=== PATIENT | female | born 1965 | race Caucasian/White ===

== ENCOUNTER 2020-01-13 16:14 | Emergency (ER) | payer SELFPAY ==
--- NOTE | 2020-01-13 17:26 | EDM.PDOCBH ---
ED HPI GENERAL MEDICAL PROBLEM - General Chief Complaint: Behavioral/Psych Stated Complaint: [facility] Time Seen by Provider: 01/13/20 17:07 Source of Information: Reports: Patient History Limitations: Reports: No Limitations ( ) - History of Present Illness INITIAL COMMENTS - FREE TEXT/NARRATIVE: Patient is a 54-year-old female who presents with complaints of a "panic attack "which caused her to call the ambulance. Patient states that she was lying in bed, her heart started racing, she was hyperventilating, and her hands and feet were numb and tingling. She states she has had this happen before, however she can usually calm herself down but today she cannot. Patient has a history of anxiety with panic attacks however, she is not on any anxiety medications nor has she ever been. She has been working night shifts for the past few days and has only slept for about 4 hours total over the last 3 days. She also has some increased stress at home. 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 At the time of the interview, patient's symptoms had resolved and she states that she is feeling much better. She denies any chest pain, shortness of breath, or palpitations at the time of the exam. She does not have a primary care provider. - Related Data Allergies Allergy/AdvReac Type Severity Reaction Status Date / Time No Known Allergies Allergy Verified 01/13/20 16:20 Home Meds: Home Meds . [No Known Home Meds] 01/13/20 [History] Past Medical History HEENT History: Reports: Other (See Below) Other HEENT History: cold sore to nose Social & Family History - Tobacco Use Smoking Status *Q: Never Smoker - Caffeine Use Caffeine Use: Reports: Tea - Recreational Drug Use Recreational Drug Use: No ED ROS GENERAL - Review of Systems Review Of Systems: Comprehensive ROS is negative, except as noted in HPI. ED EXAM, BEHAVIORAL HEALTH - Physical Exam Exam: See Below Exam Limited By: No Limitations General Appearance: Alert, WD/WN, No Apparent Distress Respiratory/Chest: No Respiratory Distress, Lungs Clear, Normal Breath Sounds, No Accessory Muscle Use, Chest Non-Tender Cardiovascular: Normal Peripheral Pulses, Regular Rate, Rhythm, No Edema, No Gallop, No JVD, No Murmur, No Rub GI/Abdominal: Normal Bowel Sounds, Soft, Non-Tender, No Organomegaly, No Distention, No Abnormal Bruit, No Mass Neurological: Alert, Normal Mood/Affect, CN II-XII Intact, Normal Cognition, Normal Gait, Normal Reflexes, No Motor/Sensory Deficits, Oriented x 3 Psychiatric: Alert, Normal Affect, Normal Cognition, Normal Mood, Oriented EKG INTERPRETATION EKG Date: 01/13/20 Time: 17:35 Rhythm: NSR Rate (Beats/Min): 75 [place]: Normal P-Wave: Present QRS: Normal ST-T: Normal QT: Normal EKG Interpretation Comments: RSR wave V1 V2, normal variant Early R wave progression, consider septal hypertrophy Consider left atrial hypertrophy EKG interpreted by Dr. Becca SALAS COURSE, BEHAVIORAL HEALTH COMP - Course Vital Signs: Last Vital Signs Temp 99.7 F 01/13/20 16:15 Pulse 88 01/13/20 16:15 Resp 20 01/13/20 16:15 BP 143/79 H 01/13/20 16:15 Pulse Ox 100 01/13/20 16:15 Orders, Labs, Meds: Active Orders 24 hr Category Date Time Status EKG Documentation Completion [RC] STAT Care 01/13/20 17:22 Active Laboratory Tests 01/13/20 01/13/20 01/13/20 Range/Units 17:34 17:34 18:48 WBC 6.51 (3.98-10.04) K/mm3 RBC 4.97 (3.98-5.22) M/mm3 Hgb 14.8 (11.2-15.7) gm/dl Hct 43.9 (34.1-44.9) % MCV 88.3 (79.4-94.8) fl MCH 29.8 (25.6-32.2) pg MCHC 33.7 (32.2-35.5) g/dl RDW Std Deviation 38.3 (36.4-46.3) fL Plt Count 310 (182-369) K/mm3 MPV 9.0 L (9.4-12.3) fl Neut % (Auto) 72.4 H (34.0-71.1) % Lymph % (Auto) 22.3 (19.3-51.7) % [place] % (Auto) 4.5 L (4.7-12.5) % Eos % (Auto) 0.3 L (0.7-5.8) Baso % (Auto) 0.3 (0.1-1.2) % Neut # (Auto) 4.72 (1.56-6.13) K/mm3 Lymph # (Auto) 1.45 (1.18-3.74) K/mm3 [place] # (Auto) 0.29 (0.24-0.36) K/mm3 Eos # (Auto) 0.02 L (0.04-0.36) K/mm3 Baso # (Auto) 0.02 (0.01-0.08) K/mm3 Sodium 143 (136-145) mEq/L Potassium 3.6 (3.5-5.1) mEq/L Chloride 105 (98-107) mEq/L Carbon Dioxide 29 (21-32) mEq/L Anion Gap 12.6 (5-15) BUN 6 L (7-18) mg/dL Creatinine 0.8 (0.55-1.02) mg/dL Est Cr Clr Drug Dosing 64.95 mL/min Estimated GFR (MDRD) > 60 (>60) mL/min BUN/Creatinine Ratio 7.5 L (14-18) Glucose 111 H (74-106) mg/dL Calcium 9.9 (8.5-10.1) mg/dL Total Bilirubin 0.7 (0.2-1.0) mg/dL AST 21 (15-37) U/L ALT 29 (14-59) U/L Alkaline Phosphatase 98 (46-116) U/L Total Protein 8.0 (6.4-8.2) g/dl Albumin 4.5 (3.4-5.0) g/dl Globulin 3.5 gm/dL Albumin/Globulin Ratio 1.3 (1-2) TSH 3rd Generation 0.936 (0.358-3.74) uIU/mL Urine Color Light yellow (Yellow) Urine Appearance Clear (Clear) Urine pH 7.0 (5.0-8.0) Ur Specific [place] 1.020 (1.005-1.030) Urine Protein Negative (Negative) Urine Glucose (UA) Negative (Negative) Urine Ketones 1+ H (Negative) Urine Occult Blood Negative (Negative) Urine Nitrite Negative (Negative) Urine Bilirubin Negative (Negative) Urine Urobilinogen 0.2 (0.2-1.0) Ur Leukocyte Esterase Negative (Negative) Urine RBC Not seen (0-5) /hpf Urine WBC 0-5 (0-5) /hpf Ur Squamous Epith Cells 0-5 (0-5) /hpf Urine Bacteria Not seen (FEW) /hpf Urine Mucus Not seen (FEW) /hpf Re-Assessment/Re-Exam: On exam, patient is calm. She states that she is no longer experience the palpitations and that she feels much better. She denies the need for any anxiety medications at this time, and states that she is hesitant to take any prescription medications. We will do a basic work-up including a CBC, CMP, TSH , urinalysis, and EKG. 01/13/20201924 Patient's work-up was grossly unremarkable. She still feels like she is doing well and does not need any medication for anxiety. We will discharge her home with instructions to follow-up with her primary care provider if this becomes an ongoing issue for her discharge instructions as documented. Departure - Departure Time of Disposition: 19:26 Disposition: Home, Self-Care 01 Condition: Good Clinical Impression: Anxiety - Discharge Information *PRESCRIPTION DRUG MONITORING PROGRAM REVIEWED*: No *COPY OF PRESCRIPTION DRUG MONITORING REPORT IN PATIENT ISAIAS: No Instructions: Panic Attack, [id number], Living With Anxiety Referrals: PCP,Unknown [Ordering Only Provider] - Forms: ED Department Discharge Additional Instructions: You were seen in the emergency department today after having a panic attack at home. Your symptoms had resolved for the time that you arrived to the ER. Work -up was completed including blood work as well as urinalysis. This was found to all be within normal limits. You declined the need for any anxiety medications at this time. I do recommend that you schedule appointment with a primary care provider to monitor your anxiety and possibly get you on a long- term medication if you find that is an ongoing issue for you. If you should experience any worsening symptoms, please do not hesitate to return to the emergency department. Sepsis Event Note - Evaluation Sepsis Screening Result: No Definite Risk - Focused Exam Vital Signs: Vital Signs Temp Pulse Resp BP Pulse Ox 01/13/20 16:15 99.7 F 88 20 143/79 H 100 Date Exam was Performed: 01/14/20 Time Exam was Performed: 01:32 - My Orders Last 24 Hours: My Active Orders 01/13/20 17:22 EKG Documentation Completion [RC] STAT - Assessment/Plan Last 24 Hours: My Active Orders 01/13/20 17:22 EKG Documentation Completion [RC] STAT
== END 2020-01-13 19:35 | disposition home or self-care (01) ==
LOC: JD.ED 16:14
DX: F41.9 Anxiety disorder, unspecified (principal)
CPT/HCPCS: 36415; 80053; 81001; 84443; 85025; 93005; 93010; 99283; 99284-25